=== PATIENT | male | born 1970 | race Caucasian/White ===

== ENCOUNTER 2016-12-26 13:34 | Emergency (ER) | payer MEDICAID, OTHER ==
[~2016-12-26] VITALS: Ht 152.4 cm; Wt 86.5 kg
[2016-12-26 13:37] VITALS: Ht 152.4 cm; Wt 86.5 kg
[2016-12-26] MEDS ORDERED: ONDANSETRON (ODT) 4 MG TAB ODT STA (14:29)
[2016-12-26] MEDS ORDERED: MECLIZINE 12.5 MG TAB PO ONE (14:30)
--- NOTE | 2016-12-26 14:33 | ERD ---
ER Documentation Chief Complaint Date/Time DATE: 12/26/16 TIME: 14:31 Chief Complaint intermittent dizziness since 12/23 HPI Patient is an otherwise healthy 46-year-old male who presents with 4 days of intermittent dizziness. He states the dizziness is worse when he goes from sitting to standing or when he changes position of his head and he describes it as the room spinning. He denies any changes to his vision. Denies any chest pain or shortness of breath. He denies any trauma. He has not taken any medications for this. He denies any headache ROS All systems reviewed and are negative except as per history of present illness. Medications Home Meds Active Scripts Ondansetron (Ondansetron Odt) 4 Mg Tab.rapdis, 4 MG PO Q6H Y for NAUSEA AND/OR VOMITING, #20 TAB Prov:ROXIE MCNAMARA PA-C 12/26/16 Meclizine Hcl* (Meclizine Hcl*) 25 Mg Tablet, 25 MG PO Q8H Y for DIZZINESS, #30 TAB Prov:ROXIE MCNAMARA PA-C 12/26/16 Allergies Allergies: Coded Allergies: No Known Allergy (Unverified , 12/26/16) FmHx Family History: No diabetes Physical Exam Vitals Vital Signs Date Time Temp Pulse Resp B/P Pulse Ox O2 Delivery O2 Flow Rate FiO2 12/26/16 13:37 97.3 72 18 131/91 96 Physical Exam INITIAL VITAL SIGNS: Reviewed by me GENERAL: Awake, alert and oriented x 4, well appearing, nontoxic, speaking in full sentences. No acute distress HEAD: Atraumatic EYES: EOMI. PERRL. EAR: No tenderness over the mastoids bilaterally. No exudates in the canals. TMs nonerythematous. NECK: Supple. No masses. Full range of motion. No meningismus. No midline tenderness. RESPIRATORY: Clear to auscultation bilaterally. Symmetric chest wall rise. No wheezing or rales. No accessory muscle use. CV: Regular rate and rhythm. No murmurs, rubs, or gallops. ABDOMEN: Soft, non-distended. Nontender. Negative [place]. Negative Mc[place]neys point tenderness. No CVA tenderness bilaterally. No guarding. No rebound. : Deffered. EXTREMITIES: No clubbing or cyanosis. No edema. Moving all extremities normally. NEUROLOGIC: Normal mental status and speech. Face is symmetric. Moves all extremities equally. Motor and sensory distally intact. Normal coordination. Ambulates with a strong steady gait. Cranial nerves II through XII intact, finger to nose within normal limits, cable installer strength 5 out of 5 bilaterally, Romberg and pronator drift negative, rapid alternating movements within normal limits Results 24 hrs Laboratory Tests Test 12/26/16 14:43 Bedside Glucose 106mg/dL Current Medications Medications (Trade) Dose Ordered Sig/Jovan Route PRN Reason Start Time Stop Time Status Last Admin Dose Admin Meclizine HCl (Antivert) 25 mg ONCE ONCE PO 12/26/16 14:30 12/26/16 14:31 DC 12/26/16 14:49 Ondansetron HCl (Zofran Odt) 4 mg ONCE STAT ODT 12/26/16 14:29 12/26/16 14:31 DC 12/26/16 14:49 Procedures/MDM 46-year-old otherwise healthy male presents with intermittent dizziness for the past 4 days. Patients is alert, oriented, well appearing, and in no distress with normal vital signs. There is no fever, tachycardia, or tachypnea. He has no pain including headache or chest pain. The way he describes his dizziness is consistent with benign positional vertigo. He was given meclizine and Zofran. EKG and Accu-Chek were performed. EKG was read as normal sinus rhythm with a rate of 65 with no evidence of ST elevation or acute ischemic changes. Accucheck wnl. Pt had improvement of his sx with meclizine and zofran. She was discharged with zofran and meclizine. Patient counseled regarding my diagnostic impression and care plan. Prior to discharge all questions answered. Pt agrees with treatment plan and understands strict return precautions. Pt is instructed to follow up with primary care provider within 24-48 hours. Precautionary instructions provided including instructions to return to the ER if not improving or for any worsening or changing symptoms or concerns. Departure Diagnosis: Primary Impression: Benign positional vertigo Condition: Stable ROXIE MCNAMARA PA-C Dec 26, 2016 14:33
[2016-12-26] MEDS ORDERED: ONDA4TAB14 PO (15:03)
[2016-12-26] MEDS ORDERED: MECL-77 PO (15:03)
[2016-12-26 15:29] VITALS: BP 126/94; PULSE 78; RESP 16; TEMP 97.6
== END 2016-12-26 15:28 | disposition home or self-care (01) ==
LOC: FTE 13:34
DX: H81.10 Benign paroxysmal vertigo, unspecified ear (principal)
CPT/HCPCS: 82962; 93005; Z7502; Z7610

== ENCOUNTER 2017-07-16 10:49 | Emergency (ER) | END 2017-07-16 14:22 | disposition home or self-care (01) ==